=== PATIENT | female | born 1980 | race Caucasian/White ===

== ENCOUNTER 2021-12-18 04:51 | Emergency (ER) | payer MEDICAID ==
[~2021-12-18] VITALS: Ht 157.5 cm; Wt 136.1 kg
[2021-12-18 05:35] VITALS: BP_SYST 184
--- NOTE | 2021-12-18 05:49 | NUR ---
Patient to ER bed 4 to gown for evaluation. Side rails up. Report given to Melody.
--- NOTE | 2021-12-18 05:50 | NUR ---
DIANE Rodgers at bedside examining patient.
--- NOTE | 2021-12-18 06:00 | NUR ---
Patient presents to ED from home with c/o left side facial swelling. Patient reports pain 0/10 at this time. Patient states "I had a pimple 3 days ago so I popped it. Yesterday it got red so I popped it again and then it got swollen. I went to urgent care and they gave me Bactrim for an antibiotic. I took 1 pill and I came here because I havent seen a change. Maybe I can get a different antibiotic that can work faster." Patient's mother is at bedside. Patient A/Ox4, VSS, ambulatory, resp even and unlabored. Skin warm, dry; patient has notable swelling and redness to the left cheek. Nad noted at this time.
--- NOTE | 2021-12-18 06:08 | NUR ---
ER MD Vee at bedside evaluating patient.
--- NOTE | 2021-12-18 06:15 | NUR ---
ER MD Vee left message for plastics MD Jonathan Jordan to come and evaluate patient's face for possible I+D.
--- NOTE | 2021-12-18 06:58 | NUR ---
Patient resting comfortably in bed with side rails raised. Patient's mother at bedside.
--- NOTE | 2021-12-18 07:15 | NUR ---
Report given to ELEONORA Gar; assuming care of patient at this time.
--- NOTE | 2021-12-18 07:31 | NUR ---
Patient given written and verbal discharge instructions and verbalizes understanding. ER DR. TARSHA LINDA discussed with patient the results and treatment provided. Patient in stable condition. ID arm band removed. IV catheter removed intact and dressing applied, no active bleeding. Patient educated on pain management and to follow up with PMD. Pain Scale 0/10. Opportunity for questions provided and answered. Medication side effect fact sheet provided.
== END 2021-12-18 07:31 | disposition left against medical advice (07) ==
LOC: SED 04:51
DX: L02.01 Cutaneous abscess of face (principal); R22.0 Localized swelling, mass and lump, head; Z88.1 Allergy status to other antibiotic agents; Z79.899 Other long term (current) drug therapy
CPT/HCPCS: 99281